=== PATIENT | male | born 1980 | race Caucasian/White ===

== ENCOUNTER 2018-08-01 07:58 | Emergency (ER) | payer BC, OTHER ==
[2018-08-01 08:12] VITALS: BP 137/82
--- NOTE | 2018-08-01 08:27 | UC ---
Skin Complaint HPI - HPI Summary HPI Summary: The patient is a 37-year-old diabetic male with the onset of left lower lip swelling and pain as well as perioral lesions that developed yesterday. Your painful and not pruritic. He has no history of MRSA. - History of Current Complaint Chief Complaint: UCSkin Time Seen by Provider: 08/01/18 08:10 Stated Complaint: SWOLLEN LIP Hx Obtained From: Patient Onset/Duration: Gradual Onset, Lasting Hours Timing: Constant Onset Severity: Mild Current Severity: Mild Pain Intensity: 2 Location: Discrete Character: Swelling, Pain, Raised, Painful Aggravating Factor(s): Nothing Alleviating Factor(s): Nothing Associated Signs & Symptoms: Positive: Rash - Allergy/Home Medications Allergies/Adverse Reactions: Allergies Allergy/AdvReac Type Severity Reaction Status Date / Time Penicillins Allergy Unknown Unknown Verified 08/01/18 08:12 Reaction Details Review of Systems Constitutional: Negative Skin: Rash Eyes: Negative ENT: Negative Respiratory: Negative Cardiovascular: Negative Gastrointestinal: Negative Genitourinary: Negative Motor: Negative Neurovascular: Negative Musculoskeletal: Negative Neurological: Negative Psychological: Negative Is Patient Immunocompromised?: No All Other Systems Reviewed And Are Negative: Yes PMH/Surg Hx/FS Hx/Imm Hx Previously Healthy: Yes Endocrine History: Diabetes - Surgical History Surgical History: None - Family History Known Family History: Positive: Hypertension - Social History Alcohol Use: Occasionally Substance Use Type: None Smoking Status (MU): Never Smoked Tobacco Physical Exam Triage Information Reviewed: Yes Appearance: Well-Appearing, No Pain Distress, Well-Nourished Vital Signs: Initial Vital Signs Temp 97.5 F 08/01/18 08:08 Pulse 66 08/01/18 08:08 Resp 15 08/01/18 08:08 BP 137/82 08/01/18 08:08 Pulse Ox 98 08/01/18 08:08 Vital Signs Reviewed: Yes Eyes: Positive: Conjunctiva Clear ENT: Positive: Hearing grossly normal, Uvula midline. Negative: Nasal congestion, Nasal drainage, Trismus, Muffled voice, Hoarse voice Neck: Positive: Supple, Nontender, No Lymphadenopathy Respiratory: Positive: Lungs clear, Normal breath sounds, No respiratory distress Cardiovascular: Positive: RRR, No Murmur Musculoskeletal: Positive: ROM Intact, No Edema Neurological: Positive: Alert Psychological Exam: Normal Skin Exam: Other - see image Course/Dx - Diagnoses Provider Diagnoses: anna-oral rash. ? viral (HSV v s impetigo) Discharge - Sign-Out/Discharge Documenting (check all that apply): Patient Departure All imaging exams completed and their final reports reviewed: No Studies - Discharge Plan Condition: Stable Disposition: HOME Prescriptions: DOXYcycline CAP(*) [DOXYcycline 100MG CAP(*)] 100 mg PO BID #14 cap ValACYclovir (*) [Valtrex 1 GM(*)] 2 gm PO BID #4 tab Patient Education Materials: Impetigo (ED), Oral Herpes Simplex Virus Infections (ED) Referrals: Lucía Howard MD [Primary Care Provider] - Additional Instructions: tests are pending I can't tell if this is viral or bacterial - Billing Disposition and Condition Condition: STABLE Disposition: Home Images Head: 1 - lip swollen and tender here-no intra oral lesions 2 - lesion appears more impetiginous than vesicular 3 - see #2 4 - see #2
--- NOTE | 2018-08-03 11:24 | UC ---
- Progress Note Progress Note: HSV 1 and 2 neg Please call pt to update ljj 08/03/18 Discharge - Sign-Out/Discharge Documenting (check all that apply): Post-Discharge Follow Up All imaging exams completed and their final reports reviewed: No Studies - Discharge Plan Condition: Stable Disposition: HOME Prescriptions: DOXYcycline CAP(*) [DOXYcycline 100MG CAP(*)] 100 mg PO BID #14 cap Mupirocin 2% OINT* [Bactroban 2 % Oint*] 1 applic TOPICAL TID #1 tube ValACYclovir (*) [Valtrex 1 GM(*)] 2 gm PO BID #4 tab Patient Education Materials: Impetigo (ED), Oral Herpes Simplex Virus Infections (ED) Referrals: Lucía Howard MD [Primary Care Provider] - Additional Instructions: tests are pending I can't tell if this is viral or bacterial - Billing Disposition and Condition Condition: STABLE Disposition: Home
== END 2018-08-01 08:41 | disposition home or self-care (01) ==
LOC: UCCORT 07:58
DX: R21 Rash and other nonspecific skin eruption (principal); Z88.0 Allergy status to penicillin; E11.9 Type 2 diabetes mellitus without complications
CPT/HCPCS: 87070; 87205; 87529; 87640; 87641; 99212; G0463